=== PATIENT | male | born 2000 | race Caucasian/White ===

== ENCOUNTER 2020-05-30 01:40 | Emergency (ER) | payer BC, SELFPAY ==
[2020-05-30] MEDS ORDERED: Ondansetron PF 4 MG/2 ML Vial ONE (02:02)
== END 2020-05-30 04:07 | disposition home or self-care (01) ==
LOC: EDBD 01:40 → ERS 01:40
DX: F10.129 Alcohol abuse with intoxication, unspecified (principal); Y90.8 Blood alcohol level of 240 mg/100 ml or more
CPT/HCPCS: 80307; 96374; J2405